=== PATIENT | male | born 1960 | race African-American/Black ===

== ENCOUNTER 2023-07-30 11:35 | Emergency (ER) | payer OTHER, SELFPAY ==
[2023-07-30] VITALS (9 sets, daily range): BP systolic 147–159; BP diastolic 72–80; PULSE 65–79; RESP 14–27; TEMP 36.4; O2SAT 98–99; BMI 39.2
--- NOTE | 2023-07-30 12:02 | ED_ITS ---
HPI - Syncope General Chief Complaint: Dizziness Stated Complaint: Presyncope Time Seen by Provider: 07/30/23 11:40 Source: patient Mode of arrival: Ambulatory Limitations: no limitations History of Present Illness HPI narrative: Patient is a 63-year-old male history of hypertension which is difficult to control hyperlipidemia BPH presenting today with near syncopal episode. He reports that he drove up from [employer] for a job. He walked to the job site realized he forgot something in his truck walked back it was about a 1/2 mi or quarter of a mi each way his way back to the job site he started not feeling well a little dizzy lightheaded. He sat down and then eventually had to lay down. He did not actually pass out. Every time he sat up he got blurry vision in both eyes. No numbness tingling or weakness. He denies any chest pain or palpitations. Does report that he does have some left-sided neck pain which is new. He did not have that when he got up this morning. It does hurt a little bit when he moves his neck. He has no loss of vision no nausea vomiting or other symptoms. Patient reports that he takes number of blood pressure medications including hydralazine lisinopril hydrochlorothiazide he reports that 1 of his medications was recently increased within the last 1 week. His doctor reported that he might feel a little bit dizzy. Related Data Allergies Allergy/AdvReac Type Severity Reaction Status Date / Time No Known Drug Allergies Allergy Verified 07/30/23 12:18 Patient History Social History Smoking Status: Never smoker Smoking Status: Never smoker alcohol intake frequency: 0-2 drinks per day Substance Use Type: does not use Exam Initial Vital Signs Initial Vital Signs: Vital Signs Pulse Rate 67 07/30/23 11:45 Respiratory Rate 16 07/30/23 11:45 Pulse Oximetry 99 07/30/23 11:45 GENERAL: Alert pleasant well-appearing 63-year-old male and in no acute distress. HEENT: Head atraumatic,EOMI, pupils reactive, face symmetric, moist mucous membranes CARDIOVASCULAR: Regular rate and rhythm without murmurs, rubs or gallops. RESPIRATORY: Breath sounds equal bilaterally, no wheezes rales or rhonchi. ABDOMEN: Soft, nontender. Normoactive bowel sounds all 4 quadrants. No guarding or rebound. EXTREMITIES: Normal range of motion, no clubbing or edema. Neurovascularly intact NEUROLOGICAL: Alert and oriented x4.Normal gait and speech. Cranial nerves II through XII grossly intact. Good [id number], good [id number]-[id number], strength equal bilaterally, no dysarthria or aphasia, sensation in tact to soft touch bilaterally, no visual changes, no facial droop SKIN: Warm, dry, no laceration, no petechiae, no rashes or lesions. Scores NIH Stroke Scale Level of Conciousness: Alert, keenly responsive Ask month/age: Answers both questions correctly. Open/close eyes, close hand: Performs both tasks correctly Best gaze horizontal: Normal Visual aly: No visual loss Facial palsy: Normal symetrical movement Left arm drift: No drift for full 10 sec Right arm drift: No drift for full 10 sec Left leg drift: No drift for full 5 sec Right leg drift: No drift for full 5 sec Limb ataxia: Absent Sensory on face/arms/legs: Normal, no sensory loss Best language: No aphasia, normal Dysarthria: Normal Extinction or inattention: No abnormality Total NIH Stroke scale score: 0 Course Orders Ordered: ED Orders 07/30/23 11:52 Complete Blood Count AUTO DIFF Stat 07/30/23 11:57 EKG-12 Lead Stat 07/30/23 12:04 CT angio head and neck Stat XR chest 1V Stat 07/30/23 12:40 Comprehensive Metabolic Panel Stat Lipase Stat Troponin & CK Cardiac Panel Stat Discontinued Medications Sodium Chloride (Normal Saline 0.9%) 1,000 mls @ 1,000 mls/hr IV CONT CHA Last Infusion: 07/30/23 13:54 Dose: Infused Documented By: Admin: 07/30/23 12:21 Dose: 1,000 mls/hr Documented By: REHAN Vital Signs Vital signs: Vital Signs - 8 hr 07/30/23 11:45 07/30/23 11:52 07/30/23 12:00 Temperature 97.6 F Pulse Rate 67 76 73 Respiratory Rate 16 20 Blood Pressure 159/80 H Pulse Oximetry 99 98 Oxygen Delivery Method Room Air 07/30/23 12:30 07/30/23 13:00 07/30/23 13:30 Temperature Pulse Rate 65 69 65 Respiratory Rate 14 14 14 Blood Pressure Pulse Oximetry Oxygen Delivery Method 07/30/23 13:55 07/30/23 13:55 07/30/23 14:00 Temperature Pulse Rate 69 75 Respiratory Rate 16 27 H Blood Pressure 147/77 H Pulse Oximetry Oxygen Delivery Method 07/30/23 14:06 07/30/23 14:06 Temperature Pulse Rate 79 Respiratory Rate 21 Blood Pressure 152/72 H Pulse Oximetry Oxygen Delivery Method MDM - Syncope Lab Data 07/30/23 11:52 07/30/23 12:40 Labs: Lab Results 07/30/23 07/30/23 Range/Units 11:52 12:40 WBC 11.0 (4.5-11.0) X10^3/uL RBC 5.33 (4.5-5.9) X10^6/uL Hgb 14.7 (13.5-17.5) g/dL Hct 44.2 (41-53) % MCV 83.0 (80-100) fL MCH 27.5 (26-34) PG MCHC 33.2 (30-36) % RDW 13.5 (11.6-14.8) % Plt Count 241 (150-400) X10^3/uL Neut % (Auto) 78.9 H (50-75) % Lymph % (Auto) 11.8 L (25-40) % [place] % (Auto) 7.7 (3-14) % Eos % (Auto) 1.0 L (2-4) % Baso % (Auto) 0.6 (0-2) % Neut # (Auto) 8700 H (7740-8588) /uL Lymph # (Auto) 1300 (7507-5044) /uL [place] # (Auto) 800 (0-900) /uL Eos # (Auto) 100 (0-450) /uL Baso # (Auto) 100 (0-100) /uL Sodium Cancelled 137 Potassium Cancelled 3.5 Chloride Cancelled 98 Carbon Dioxide Cancelled 31 BUN Cancelled 19 Creatinine Cancelled 1.08 Estimated GFR Cancelled > 60 BUN/Creatinine Ratio Cancelled 17.6 Glucose Cancelled 116 H Calcium Cancelled 9.3 Total Bilirubin 1.1 (0.2-1.3) mg/dL AST 24 (17-59) IU/L ALT 23 (<50) IU/L Alkaline Phosphatase 66 (38-126) U/L Total Creatine Kinase 200 H (55-170) U/L Troponin I Cancelled < 0.012 Total Protein 7.7 (6.3-8.2) g/dL Albumin 4.6 (3.5-5.0) g/dL Globulin 3.1 (1.7-4.1) g/dL Albumin/Globulin Ratio 1.5 (1.0-2.8) Lipase 57 (23-300) U/L Imaging Data CTA - brain/neck: Radiologist's Impression: PROCEDURE: XR CHEST 1V INDICATIONS: chest pain TECHNIQUE: One view of the chest was acquired. COMPARISON: None. FINDINGS: Surgical changes and devices: None. Lungs and pleura: Low lung volumes. No airspace disease or pleural effusions. Mediastinum: Heart size is at the upper limit of normal Bones and chest wall: Unremarkable IMPRESSION: Low lung volumes. No acute radiographic abnormality on this single view study. Dictated by: David Jones M.D. on 07/30/2023 at 12:56 ECG Data Interpretation: Normal sinus rhythm rate 64 CA interval 162 QRS [address] changes MDM Narrative Medical decision making narrative: Patient is a 63-year-old male history of hypertension with difficult to control hypertension although his blood pressure seems controlled here. Presents today with a near syncopal episode. Sounds as though he had some blurry vision upon standing up and felt like he might pass out but did not pass out. He has no neuro focal deficits NIH stroke scale is 0. He is complaining of some left neck pain CT angio head and neck was done Blood work has been reviewed no clinically significant abnormalities no evidence of end-organ damage troponin is negative creatinine within normal limits Imaging reviewed: No carotid stenosis or dissection on the CT head and neck angio chest x-ray I suspect patient is feeling effects of his new blood pressure medication. He is neurologically intact no evidence of TIA or CVA. He is overall feeling better he got a L of fluid here in the ED. Discharge Plan Departure Patient Disposition: Home Clinical Impression: Near syncope Instructions: Orthostatic Hypotension Activity Restrictions/Additional Instructions: *You have been diagnosed with near syncope *What to do: At this time blood work and CT are overall reassuring. Please stay hydrated. *Continue to take medications as directed *Follow up with your primary care provider in 2-3 days or call [phone] *Return to ER if you should have in increased dizziness passing out chest pain palpitations or any new, worsening or concerning symptoms Referrals: Miscellaneous,Doctor, MD [Primary Care Provider] - Stand Alone Forms: Patient Portal/API
[2023-07-30 12:04] LABS: Add Manual Diff / Slide Review NO; Basophils Absolute Auto 100 /uL (0-100); Basophils Percent Auto 0.6 % (0-2); Eosinophils Absolute Auto 100 /uL (0-450); Hematocrit 44.2 % (41-53); Hemoglobin 14.7 g/dL (13.5-17.5); Lymphocytes Absolute Auto 1300 /uL (1100-4500); Lymphocytes Percent Auto 11.8 % (25-40); Mean Corpuscular HGB Conc 33.2 % (30-36); Mean Corpuscular Hemoglobin 27.5 PG (26-34); Monocytes Absolute Auto 800 /uL (0-900); Monocytes Percent Auto 7.7 % (3-14); Neutrophils Absolute Auto 8700 /uL (1500-7000); Neutrophils Percent Auto 78.9 % (50-75); Platelet Count 241 X10^3/uL (150-400); Red Blood Cell Count 5.33 X10^6/uL (4.5-5.9); Red Cell Distribution Width 13.5 % (11.6-14.8)
--- NOTE | 2023-07-30 12:04 | DI.CT.S_ITS ---
PROCEDURE: CT ANGIO HEAD AND NECK INDICATIONS: left sided neck pain with dizzy and htn TECHNIQUE: After the administration of intravenous contrast, 1 mm thick sections acquired from the aortic arch through the [place]. 3-dimensional uncwvou-bdvtalhvl-hpiikxgmgr (MIP) and/or volume rendering reformats were acquired of the central intracranial vasculature and neck separately. For radiation dose reduction, the following was used: automated exposure control, adjustment of mA and/or kV according to patient size. COMPARISON: None. FINDINGS: Image quality: Diagnostic. BRAIN: CSF spaces: Ventricles are normal in size and shape. Basal cisterns are patent. No extra-axial fluid collections. Brain: No significant abnormality of the brain can be seen. Skull and face: Calvarium and facial bones appear intact, without suspicious lesions. Orbits appear normal. Sinuses: Sinuses and mastoids are clear. HEAD CT ANGIOGRAPHY: Anterior circulation: Intracranial internal carotid arteries are normal in size and flow. The flow within the paired anterior cerebral arteries is normal and symmetric. The flow within the middle cerebral arteries is normal and symmetric. The anterior communicating artery is seen. No aneurysms are seen. Posterior circulation: Visualized portions of the vertebral arteries demonstrate normal caliber, and join to form a normal appearing basilar artery. Flow within the posterior cerebral arteries is normal and symmetric. No aneurysms are seen. NECK CT ANGIOGRAPHY: Carotid system: The great vessels demonstrate a conventional anatomy as they arise from the aortic arch. The origins of the common carotid arteries appear patent. The common carotid arteries demonstrate normal caliber and courses. The bifurcation regions are both widely patent. The internal carotid arteries demonstrate normal calibers and courses. Posterior circulation: The origins of the vertebral arteries both appear widely patent. The more superior extracranial portions of both vertebral arteries also demonstrate normal courses and calibers. They join to form a normal appearing basilar artery. Soft tissues: Visualized neck soft tissues demonstrate no suspicious abnormalities. Bones: No suspicious bony lesions. Visualized cervical spine appears normally aligned. IMPRESSION: No significant intracranial arterial abnormality is seen. No significant abnormality is seen within the arteries of the neck. Any quantitative measurements of stenosis were performed using NASCET criteria. Dictated by: Jordan Cueto M.D. on 07/30/2023 at 14:09 Approved by: Jordan Cueto M.D. on 07/30/2023 at 14:10
[2023-07-30] MEDS: SODIUM CHLORIDE 0.9% 1,000 ML 1000 ML IV (12:21)
[2023-07-30 13:01] LABS: Alanine Aminotransferase 23 IU/L (<50); Albumin 4.6 g/dL (3.5-5.0); Albumin Globulin Ratio 1.5 (1.0-2.8); Alkaline Phosphatase 66 U/L (38-126); Aspartate Aminotransferase 24 IU/L (17-59); BUN Creatinine Ratio 17.6 (6-22); Bilirubin Total 1.1 mg/dL (0.2-1.3); Blood Urea Nitrogen 19 mg/dL (9-20); Calcium 9.3 mg/dL (8.4-10.2); Carbon Dioxide 31 mmol/L (22-32); Chloride 98 mmol/L (98-107); Creatine Kinase 200 U/L (55-170); Estimated Glomerular Filt Rate > 60 mL/min (>60); Globulin 3.1 g/dL (1.7-4.1); Glucose 116 mg/dL (80-110); HEMOLYSIS < 15 (0-50); Lipase 57 U/L (23-300); Potassium 3.5 mmol/L (3.4-5.1); Sodium 137 mmol/L (137-145); Total Protein 7.7 g/dL (6.3-8.2)
[2023-07-30 13:11] LABS: Troponin I < 0.012 ng/mL (0.01-0.034)
== END 2023-07-30 14:25 | disposition home or self-care (01) ==
PROVIDERS: Emergency Provider Emergency Medicine
DX: R55 Syncope and collapse (principal); I10 Essential (primary) hypertension; M54.2 Cervicalgia; R07.9 Chest pain, unspecified
CPT/HCPCS: 36415; 70496; 70498; 71045; 80053; 82550; 83690; 84484; 85025; 93005; 93010; 96360; 96361; 99284; Q9967